=== PATIENT | female | born 1950 | race African-American/Black ===

== ENCOUNTER 2016-11-22 19:45 | Observation (INO) ==
[2016-11-22 20:28] LABS: Bilirubin,Urine Negative (Negative); Blood,Urine Negative (Negative); Clarity,Urine Clear (Clear); Color,Urine Yellow (Yellow); Glucose,Urine (UA) >=1000 mg/dL (Normal); Ketones,Urine Trace mg/dL (Negative); Leukocyte Esterase,Urine Negative (Negative); Nitrite,Urine Negative (Negative); Protein,Urine Negative (Neg-Trace); Specific Gravity,Urine 1.025 (1.010-1.025); Urobilinogen,Urine Normal (Normal)
[2016-11-22] MEDS: 0.9 % Sodium Chloride 1,000 ML IVC ONE ×2 (20:31→21:54)
[2016-11-22 20:39] LABS: Basophils % 0.2 %; Eosinophils # 0.1 K/mcL (0.0-0.6); Eosinophils % 0.7 %; Hematocrit 37.2 % (35.3-44.9); Immature Granulocytes % 0.4 % (0-4); Lymphocytes # 3.2 K/mcL (0.6-4.6); Lymphocytes % 30.4 %; Mean Corpuscular HGB Conc 34.9 g/dL (31.6-35.5); Mean Corpuscular Hemoglobin 27.9 pg (28.0-33.3); Mean Corpuscular Volume 79.8 fL (83.0-100.0); Mean Platelet Volume 11.6 fL (9.4-12.4); Monocytes # 0.5 K/mcL (0.0-1.3); Monocytes % 5.1 %; Neutrophils # 6.6 K/mcL (1.6-8.9); Platelet Count 226 K/mcL (140-400); Red Blood Count 4.66 M/mcL (3.82-4.97); Red Cell Distribution Width 12.4 % (11.5-14.5); Segmented Neutrophils % 63.2 %
[2016-11-22 20:40] LABS: VBG HCO3 24.8 mEq/L (21-27); VBG PH 7.39 pH Units (7.32-7.42)
[2016-11-22 20:53] LABS: Albumin 3.7 g/dL (3.5-5.0); Bilirubin,Total 0.7 mg/dL (0.2-1.2); Calcium 9.8 mg/dL (8.6-10.8); Globulin 3.8 g/dL (2.4-3.5); Phosphorous 2.8 mg/dL (2.3-4.7); Potassium 3.9 mEq/L (3.5-4.5); Total Protein 7.5 g/dL (6.0-8.3)
[2016-11-22 20:55] LABS: Beta-Hydroxybutyric Acid 0.75 mmol/L (0.02-0.27)
[2016-11-22] MEDS ORDERED: Insulin Regular, Human 100 UNIT/ML IV ONE (21:01)
--- NOTE | 2016-11-22 21:06 | Emergency Department Note ---
Disposition Clinical Impression: Acute kidney injury Hyperglycemia due to type 2 diabetes mellitus Qualifiers: Diabetes mellitus nursing home insulin use: without setter automatic spinning lathe use Qualified Code(s ): E11.65 - Type 2 diabetes mellitus with hyperglycemia Disposition: Admitted As Inpatient Condition: Fair Time of Disposition: 23:32 General Adult HPI - General Chief complaint: ED General Medical Stated complaint: elevated bs Time Seen by Provider: 11/22/16 19:56 Source: patient Mode of arrival: ambulatory Limitations: no limitations Nursing Notes Reviewed: Yes Vital Signs Reviewed: Yes - History of Present Illness HPI Narrative: 66-year-old female presented to the ED complaining of high blood sugars. She states that she was newly diagnosed with diabetes approximately one year ago and is on metformin. She says her sugars has been good. She has had an extensive family history diabetes where all family members are on insulin. She states that recently she has been checking her sugars and they are showing high on the reading. So she went to another facility and they recommended she come here because her sugars are too high at this time. She is complaining of blurry vision and feeling woozy. But she is complaining of no other pain anywhere else. She says that she is alert and oriented and feels comfortable driving and doing normal daily activities this time. She is able to see things but says that her vision has been slowly getting a little worse at This time. She has no belly pain or chest pain or shortness of breath. She is on any complaints at this time. Pain Scale: 0 - Related Data Home Medications Medication Instructions Recorded Confirmed Albuterol Sulfate [Proair Hfa] 1 puff IH PRN PRN 06/26/15 04/10/16 Carvedilol 3.125 mg PO BID 06/26/15 04/10/16 amLODIPine [Norvasc] 10 mg PO DAILY 06/26/15 04/10/16 CloNIDine Patch [Catapres-Tts] 0.2 mg TD MO 04/10/16 04/10/16 Fosinopril Sodium 20 mg PO DAILY 04/10/16 04/10/16 Furosemide [Lasix] 40 mg PO DAILY 04/10/16 04/10/16 Metformin HCl [Metformin HCl ER] 1,000 mg PO DAILY 04/10/16 04/10/16 OxyCODONE/APAP 5/325 [Percocet 1 each PO Q8HR PRN 04/10/16 04/10/16 5/325 MG] Rosuvastatin Calcium [Crestor] 10 mg PO DAILY 04/10/16 04/10/16 Previous Rx's Medication Instructions Recorded OxyCODONE Immed Rel [Roxicodone 5 5 mg PO Q6HR PRN #60 tablet 04/11/16 MG] levoFLOXacin [Levaquin] 500 mg PO DAILY #7 tablet 05/14/16 predniSONE [Prednisone] 50 mg PO DAILY 5 Days 05/14/16 Allergies Allergy/AdvReac Type Severity Reaction Status Date / Time azithromycin [From Zithromax] AdvReac See Verified 05/14/16 15:49 Comments Constitutional: Denies: fever, chills, weakness, weight change Eyes: Reports: vision change (Blurry vision). Denies: eye pain, eye discharge ENT ED: Denies: ear pain, throat pain, dental pain, hearing loss, epistaxis, congestion, dysphagia Cardiovascular: Denies: chest pain, palpitations, dyspnea on exertion, edema, syncope Respiratory: Denies: cough, dyspnea, wheezes, hemoptysis, stridor Gastrointestinal: Denies: abdominal pain, nausea, vomiting, diarrhea, constipation, hematemesis, melena, hematochezia Genitourinary: Denies: dysuria, frequency, hematuria, discharge Musculoskeletal: Denies: back pain, neck pain, arthralgia, myalgia Integumentary: Denies: rash, abrasion, lesions Neurological: Reports: weakness. 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 - Social History Smoking Status: Never smoker Smokeless Tobacco Status: No Alcohol use: Reports: occasionally Drug use: Reports: none Physical Exam - General Limitations: no limitations General appearance: alert - Head Head exam: atraumatic, normocephalic, normal inspection - Eye Eye exam: Present: normal appearance, PERRL, EOMI - ENT ENT exam: normal exam, normal oropharynx, mucous membranes moist - Expanded ENT Exam External ear exam: Present: normal external inspection Mouth exam: Present: normal external inspection Teeth exam: Present: normal inspection Throat exam: Present: normal inspection - Neck Neck exam: Present: normal inspection, full ROM, trachea midline - Chest Chest inspection: Present: normal inspection, symmetric chest wall rise - Respiratory Respiratory exam: Present: normal lung sounds bilaterally - Cardiovascular Cardiovascular exam: Present: regular rate, normal rhythm, normal heart sounds - Abdominal Exam Abdominal exam: Present: soft, Non-Tender. Absent: tenderness, distention, guarding, rebound, rigidity - Back Exam Back exam: Present: normal inspection, full ROM. Absent: tenderness - Neurological Exam Neurological exam: Present: alert, oriented X3 - Skin Skin exam: Present: warm, dry, intact, normal color Course Course Narrative: This is a 66-year-old male presents to the ED complaining of high blood sugars. She had a blood glucose of 500 upon arrival. She does have history diabetes she is a type II diabetic and is non-insulin. She states her last A1c was 7.1 in June. She is taking her metformin and other medications as prescribed this time. I notices is progressing diabetes or she may need insulin now. We will do basic labs and checking electrolytes, urine looking for ketones, CBC is C if there is any source of infection could be causing it. We will give her 2 L of normal saline and 10 units of insulin then later check her blood sugars. Her potassium is normal at this time. There is no need for supplemental potassium. - Consultations Consultation #1: Local Dr. Gore who agreed to admit the patient to the hospitalist service for hyperglycemia and acute kidney injury. Vital Signs Temperature 98.9 F 11/22/16 19:49 Pulse Rate 98 11/22/16 19:49 Respiratory Rate 22 11/22/16 19:49 Blood Pressure 126/83 11/22/16 19:49 O2 Sat by Pulse Oximetry 95 11/22/16 19:49 Temperature 98.3 F 11/23/16 00:19 Pulse Rate 69 11/23/16 00:19 Respiratory Rate 16 11/23/16 00:19 Blood Pressure 112/69 11/23/16 00:19 O2 Sat by Pulse Oximetry 96 11/23/16 00:19 Oxygen Delivery Oxygen Delivery Room Air Medical Decision Making - MDM Narrative Medical decision making narrative: 66-year-old female present to the ED with high blood sugars. When she Arrived she had a blood sugar over 500. We gave her 2 L of fluid as well as 10 units of insulin to lower her sugars. She has been on metformin. Labs show that she had acute kidney injury with an elevated creatinine of 1.6 were her normal is 1.0. She has had a history of having acute renal failure. Her second blood sugar after that treatment was 300. Due to the acute kidney injury being dehydrated and the elevated blood sugars were she most likely needs insulin we thought admission to the hospital would be the best course of action. The patient her this. Spoke with Dr. Gore the hospitalist who agreed to admit the patient. Patient is being admitted to the hospitalist service in stable condition with vital signs stable this time. - Medical Records Medical records reviewed: Yes I reviewed the patient's medical records. - Lab Data Lab results reviewed: Yes I reviewed the patient's lab results. Result diagrams: 11/22/16 20:33 11/22/16 20:33 Lab Results 11/22/16 11/22/16 11/22/16 Range/Units 20:18 20:20 20:33 WBC 10.5 (4.3-11.1) K/mcL RBC 4.66 (3.82-4.97) M/mcL Hgb 13.0 (11.5-15.4) g/dL Hct 37.2 (35.3-44.9) % MCV 79.8 L (83.0-100.0) fL MCH 27.9 L (28.0-33.3) pg MCHC 34.9 (31.6-35.5) g/dL RDW 12.4 (11.5-14.5) % Plt Count 226 (140-400) K/mcL MPV 11.6 (9.4-12.4) fL Immature Gran % 0.4 (0-4) % Seg Neutrophils % 63.2 % Lymphocytes % 30.4 % Monocytes % 5.1 % Eosinophils % 0.7 % Basophils % 0.2 % Neutrophils # 6.6 (1.6-8.9) K/mcL Lymphocytes # 3.2 (0.6-4.6) K/mcL Monocytes # 0.5 (0.0-1.3) K/mcL Eosinophils # 0.1 (0.0-0.6) K/mcL Basophils # 0.0 (0.0-0.2) K/mcL VBG pH (7.32-7.42) pH Units VBG pCO2 (41-51) mmHg VBG pO2 (25-40) mmHg VBG HCO3 (21-27) mEq/L Sodium (136-145) mEq/L Potassium (3.5-4.5) mEq/L Chloride (98-109) mEq/L Carbon Dioxide (19-29) mEq/L BUN (7-20) mg/dL Creatinine (0.57-1.11) mg/dL Est GFR ( Amer) (> 60) Est GFR (Non-Af Amer) (> 60) BUN/Creatinine Ratio (6-26) Glucose (70-99) mg/dL POC Glucose 549 H* (58-89) Calculated Osmolality (280-300) Calcium (8.6-10.8) mg/dL Phosphorus (2.3-4.7) mg/dL Magnesium (1.6-2.6) mg/dL Total Bilirubin (0.2-1.2) mg/dL AST (5-34) Units/L ALT (0-55) Units/L Alkaline Phosphatase (38-126) Units/L Serum Total Protein (6.0-8.3) g/dL Albumin (3.5-5.0) g/dL Globulin (2.4-3.5) g/dL Albumin/Globulin Ratio (1.1-2.2) Beta-Hydroxybutyric Acd (0.02-0.27) mmol/L Urine Color Yellow (Yellow) Urine Clarity Clear (Clear) Urine pH 6.0 (5.0-8.0) pH Units Ur Specific [place] 1.025 (1.010-1.025) Urine Protein Negative (Neg-Trace) mg/dL Urine Glucose (UA) >=1000 H (Normal) mg/dL Urine Ketones Trace H (Negative) mg/dL Urine Blood Negative (Negative) Urine Nitrite Negative (Negative) Urine Bilirubin Negative (Negative) Urine Urobilinogen Normal (Normal) mg/dL Ur Leukocyte Esterase Negative (Negative) Ur Culture Indicated? NO (NO) 09/08/17 09/08/17 09/08/17 Range/Units 20:33 20:33 22:48 WBC (4.3-11.1) K/mcL RBC (3.82-4.97) M/mcL Hgb (11.5-15.4) g/dL Hct (35.3-44.9) % MCV (83.0-100.0) fL MCH (28.0-33.3) pg MCHC (31.6-35.5) g/dL RDW (11.5-14.5) % Plt Count (140-400) K/mcL MPV (9.4-12.4) fL Immature Gran % (0-4) % Seg Neutrophils % % Lymphocytes % % Monocytes % % Eosinophils % % Basophils % % Neutrophils # (1.6-8.9) K/mcL Lymphocytes # (0.6-4.6) K/mcL Monocytes # (0.0-1.3) K/mcL Eosinophils # (0.0-0.6) K/mcL Basophils # (0.0-0.2) K/mcL VBG pH 7.39 (7.32-7.42) pH Units VBG pCO2 41 (41-51) mmHg VBG pO2 47 H (25-40) mmHg VBG HCO3 24.8 (21-27) mEq/L Sodium 123 L (136-145) mEq/L Potassium 3.9 (3.5-4.5) mEq/L Chloride 92 L (98-109) mEq/L Carbon Dioxide 21 (19-29) mEq/L BUN 28 H (7-20) mg/dL Creatinine 1.65 H (0.57-1.11) mg/dL Est GFR ( Amer) 38 L (> 60) Est GFR (Non-Af Amer) 31 L (> 60) BUN/Creatinine Ratio 17 (6-26) Glucose 621 H* (70-99) mg/dL POC Glucose 310 H (58-89) Calculated Osmolality 291 (280-300) Calcium 9.8 (8.6-10.8) mg/dL Phosphorus 2.8 (2.3-4.7) mg/dL Magnesium 2.0 (1.6-2.6) mg/dL Total Bilirubin 0.7 (0.2-1.2) mg/dL AST 12 (5-34) Units/L ALT 15 (0-55) Units/L Alkaline Phosphatase 99 (38-126) Units/L Serum Total Protein 7.5 (6.0-8.3) g/dL Albumin 3.7 (3.5-5.0) g/dL Globulin 3.8 H (2.4-3.5) g/dL Albumin/Globulin Ratio 1.0 L (1.1-2.2) Beta-Hydroxybutyric Acd 0.75 H (0.02-0.27) mmol/L Urine Color (Yellow) Urine Clarity (Clear) Urine pH (5.0-8.0) pH Units Ur Specific [place] (1.010-1.025) Urine Protein (Neg-Trace) mg/dL Urine Glucose (UA) (Normal) mg/dL Urine Ketones (Negative) mg/dL Urine Blood (Negative) Urine Nitrite (Negative) Urine Bilirubin (Negative) Urine Urobilinogen (Normal) mg/dL Ur Leukocyte Esterase (Negative) Ur Culture Indicated? (NO) - Radiology Data Radiology results reviewed: Yes I reviewed the patient's radiology results. - EKG Data EKG #1 EKG attestation: Yes I reviewed and interpreted this EKG. EKG results narrative: EKG done reviewed by myself and the attending. Shows normal sinus rhythm at a rate of 74, CA interval 131, QRS 86, QTC 426 with a normal axis. There are no acute ST changes, no acute T-wave changes. No signs of heart strain, heart block, hypertrophy. Nose is the pupillary size. Syndrome. This compared with an old EKG done 05/14/16 which showed sinus tachycardia but no acute changes at this time. Overall impression this EKG is normal sinus rhythm with no acute changes. EKG shows normal: sinus rhythm, axis, intervals, QRS complexes, ST-T waves Rhythm: NSR [place]/QRS: normal When compared to previous EKG there are: no significant changes Interpretation: no acute changes, normal EKG, unchanged when compared to prior tracing (date) S.B.A.R. - S.B.A.R. Transition of Care: Nazanin with Dr. Gore who agreed to admit the patient to the hospitalist service. Physical given as well as the assessment and plan we did here in the emergency room. Situation: Demographics Background: Presenting Complaint, Relevant PMH, Meds, & Allergies Assessment: Vital Signs, Course and respsone to treatment, Exam Concerns, Patient/Family Expectation, Pertinant Lab Results Recommendation: Barrier(s) to disposition, Recommendation based on pending studies, treatments, or consults Liane Report Given to: Dr. Franco Rob Repor Time: 23:34 Attestation Statement - Attestation Attestation: I examined this patient and my medical decision-making was reviewed with the Resident Physician. I agree with the documented findings, disposition and treatment plan as described except to the extent set forth below. Patient ED complaining of a high blood sugar. Patient states she has had polyuria and polydipsia. Weight loss. Her blood sugar has been reading high. On examination she is well appearing pleasant and conversant. Lungs clear. Plan. Labs show a normal anion gap. Blood sugar in the 600s. She did receive an IV dose of insulin which dropped her sugar to around 300. Concern with her acute kidney injury and her lack of follow-up for a couple days. Will admit.
[2016-11-22] MEDS ORDERED: 0.9 % Sodium Chloride 1,000 ML ONE (21:31)
[2016-11-23] MEDS ORDERED: Naloxone 0.4 MG/ML INJ IVP PRN (00:04)
[2016-11-23] MEDS ORDERED: D5% in Water 1,000 ML IVC PRN (00:06)
[2016-11-23] MEDS ORDERED: *HR* Dextrose 50 % in Water (Syg) 50 ML SYRINGE IVP PRN (00:06)
[2016-11-23] MEDS ORDERED: Dextrose Gel 15 GM PO PRN ×2 (00:06)
[2016-11-23] MEDS ORDERED: 0.9 % Sodium Chloride 1,000 ML IVC ONE (00:07)
--- NOTE | 2016-11-23 00:13 | Internal Med History&Physical ---
Date of Encounter: 11/23/16 Time of Encounter: 00:10 Assessment and Plan (1) Acute kidney injury Current visit: Yes Status: Acute suspect related to lasix use and diuretic effect of glycouria. IVF bolus, MIV , check Cr in a.m (2) Hyperglycemia due to type 2 diabetes mellitus Current visit: Yes Status: Acute check A1c, will need to convert to insulin given how high the reading was. Start low with NPH BID, ISS ac/hs to estimate needs over next day or so. Consult para educator Qualifiers: Diabetes mellitus middle or intermediate school principal insulin use: without middle or intermediate school principal use Qualified Code(s): E11.65 - Type 2 diabetes mellitus with hyperglycemia (3) HLD (hyperlipidemia) Current visit: Yes Status: Acute stable Qualifiers: Hyperlipidemia type: pure hypercholesterolemia Qualified Code(s): E78.00 - Pure hypercholesterolemia, unspecified; E78.0 - Pure hypercholesterolemia (4) Asthma Current visit: Yes Status: Acute stable Qualifiers: Asthma complication type: uncomplicated Qualified Code(s): J45.909 - Unspecified asthma, uncomplicated Internal Medicine - H&P: HPI Chief complaint: high Sugar History of present illness: Ms. Goff is a 66 year old female who presents to the ED for hyperglycemia - found to be in KEESHA and uncontrolled blood sugar. She has been on oral metformin managed by PCP but since friday while checking her CBG daily, she noted that the reading was above the threshold of her device. She says she has been putting off insulin for a while now. This morning , her CBG reading was 490. She got concerned and presented to the ED where she was found to be in hyperglycemia w/o evidence of DKA or HONK but had developed worsening KEESHA in setting of glycouria and lasix use Past Med Surg Social Fam HX - Past Medical History Medical history: asthma, diabetes, hyperlipidemia, hypertension Psychiatric history: no psych history - Social History Smoking Status: Never smoker Smokeless Tobacco Status: No Alcohol use: occasionally Drug use: none - Family History Mother Living Status: Hx Family Cardiac Disorders: No Internal Medicine - H&P: Meds Albuterol Sulfate [Proair Hfa] 1 puff IH PRN PRN 06/26/15 [History] Carvedilol 3.125 mg PO BID 06/26/15 [History] amLODIPine [Norvasc] 10 mg PO DAILY 06/26/15 [History] CloNIDine Patch [Catapres-Tts] 0.2 mg TD MO 04/10/16 [History] Fosinopril Sodium 20 mg PO DAILY 04/10/16 [History] Furosemide [Lasix] 40 mg PO DAILY 04/10/16 [History] Metformin HCl [Metformin HCl ER] 1,000 mg PO DAILY 04/10/16 [History] OxyCODONE/APAP 5/325 [Percocet 5/325 MG] 1 each PO Q8HR PRN 04/10/16 [History] Rosuvastatin Calcium [Crestor] 10 mg PO DAILY 04/10/16 [History] OxyCODONE Immed Rel [Roxicodone 5 MG] 5 mg PO Q6HR PRN #60 tablet 04/11/16 [Rx] levoFLOXacin [Levaquin] 500 mg PO DAILY #7 tablet 05/14/16 [Rx] predniSONE [Prednisone] 50 mg PO DAILY 5 Days 05/14/16 [Rx] 3 Allergy/AdvReac Type Severity Reaction Status Date / Time azithromycin [From Zithromax] AdvReac See Verified 05/14/16 15:49 Comments All Systems PM: A 10-system review of systems was performed and is negative for pertinent findings except as documented above in the HPI. Review of systems: ROS 14 point review of systems reviewed as best as possible given presentation. Pertinent positive or negative as per HPI or otherwise reviewed as negative - Constitutional Vitals: Temp Pulse Resp BP Pulse Ox 98.9 F 98 18 0/0 95 11/22/16 19:49 11/22/16 19:49 11/22/16 23:53 11/22/16 23:53 11/22/16 19:49 Exam: General - AAO x 3 Psych - Appropriate affect/speech. No agitation Eyes - DMITRY. Eye lids intact. No scleral icterus Heart - Sinus. RRR. S1 and S2 present. No added HS/murmurs appreciated. No elevated JVD appreciated. No calf swellings/erythema Lung - Adequate air entry b/l, No crackles/wheezes appreciated GI - Soft, non-tender. No hepatosplenomegaly/ascites. BS+ - No CVA/suprapubic tenderness or palpable bladder distension Skin - Intact. No rash/petechiae/ecchymosis. Warm extremities MSK - Joints with normal ROM. No joint swellings Internal Med - H&P Results - Labs CBC & Chem 7: 11/22/16 20:33 11/22/16 20:33
[2016-11-23] MEDS: Insulin NPH/REG 70/30 100 UNIT/ML (x5UNIT) SQ SCH ×2 (01:12→09:28)
[2016-11-23] MEDS: 0.9 % Sodium Chloride 1,000 ML IVC SCH ×2 (01:12→09:29)
[2016-11-23] MEDS ORDERED: *HR* Enoxaparin 40 MG/0.4 ML SYRINGE SQ SCH (06:00)
[2016-11-23 07:47] LABS: BUN/Creatinine Ratio 17 (6-26); Calcium 8.5 mg/dL (8.6-10.8); Carbon Dioxide 20 mEq/L (19-29); Glucose 222 mg/dL (70-99); Osmolality,Calculated 286 (280-300); Potassium 3.5 mEq/L (3.5-4.5); eGFR For African Americans > 60 (> 60); eGFR For Non-African Americans > 60 (> 60)
[2016-11-23 07:55] LABS: Blood Urea Nitrogen 15 mg/dL (7-20); Chloride 109 mEq/L (98-109); Sodium 134 mEq/L (136-145)
[2016-11-23] MEDS ORDERED: amLODIPine 5 MG TABLET PO SCH (09:00)
[2016-11-23] MEDS ORDERED: Lisinopril 20 MG TABLET PO SCH (09:00)
[2016-11-23] MEDS: Insulin LISPRO 300 UNITS/3 ML VIAL SQ SCH ×2 (09:28→11:18)
[2016-11-23 11:15] VITALS: BP 93/49
--- NOTE | 2016-11-23 11:50 | Discharge Summary ---
Date of Encounter: 11/23/16 Time of Encounter: 08:35 - Discharge Diagnosis (1) Acute kidney injury Priority: Primary Status: Acute (2) Hyperglycemia due to type 2 diabetes mellitus Priority: Secondary Status: Acute Qualifiers: Diabetes mellitus watermelon inspector insulin use: without fpc use Qualified Code(s): E11.65 - Type 2 diabetes mellitus with hyperglycemia (3) HLD (hyperlipidemia) Priority: Secondary Status: Chronic Qualifiers: Hyperlipidemia type: pure hypercholesterolemia Qualified Code(s): E78.00 - Pure hypercholesterolemia, unspecified; E78.0 - Pure hypercholesterolemia (4) Asthma Priority: Secondary Status: Chronic Qualifiers: Asthma severity: unspecified severity Asthma complication type: uncomplicated Qualified Code(s): J45.909 - Unspecified asthma, uncomplicated - Discharge Medications Prescriptions: Insulin DETEMIR [Levemir Flextouch] 15 unit SQ BID #1 insuln.pen Insulin LISPRO [Humalog Kwikpen U-100] 5 unit SQ TIDAC #10 mls Home Medications: Furosemide [Lasix] 40 mg PO DAILY 04/10/16 [History] Rosuvastatin Calcium [Crestor] 10 mg PO DAILY 04/10/16 [History] Budesonide/Formoterol 160/4.5 [Symbicort 160/4.5] 2 puff IH BID 11/23/16 [ History] Insulin DETEMIR [Levemir Flextouch] 15 unit SQ BID #1 insuln.pen 11/23/16 [Rx] Insulin LISPRO [Humalog Kwikpen U-100] 5 unit SQ TIDAC #10 mls 11/23/16 [Rx] amLODIPine [Norvasc] 5 mg PO DAILY #0 11/23/16 [Rx] Allergies/Adverse Reactions: 3 Allergy/AdvReac Type Severity Reaction Status Date / Time azithromycin [From Zithromax] AdvReac See Verified 05/14/16 15:49 Comments Date of admission: 11/22/16 23:21 Primary care physician: Damir Berry M.D. Discharging clinician: Mitzy Gottlieb Anticipated date of discharge: 11/23/16 - Patient Status Disposition: Home, Self-Care Condition: Good Functional capacity at discharge: independent ambulation Overall status at discharge: patient is back to baseline - Discharge Instructions Instructions: Diabetes Mellitus Type 2 in Adults (DC) Follow Up With: Jamal Lewis,Damir Chamorro [Primary Care Provider] - (in 1-2 weeks) - Diet and Activity Activity: increase activity as tolerated Diet: diabetic diet, low fat, low cholesterol, low salt diet Hospital course: Ms. Goff is a 66 year old female patient with a history of diabetes mellitus, asthma, hyperlipidemia who was seen in the ED due to repeatedly elevated blood sugars since 5 days. She was found to have a blood sugar of 621 on arrival to the ER here. Her creatinine was also elevated at 1.65. She was hospitalized for hyperglycemic state and given IV fluids and insulin with improvement in her blood sugars. This morning her blood sugars are much better control and her renal function has normalized. Her A1c level is 12%. As such she will be started on an insulin regimen to control her blood sugars better. I have explained to her the rationale for starting insulin and she expressed understanding and is willing to take insulin as prescribed. She will follow up with her primary care provider for further management of her diabetes. She can resume taking metformin and her diuretics after 24 hours. She will be discharged home today. Patient's blood pressure has been low today after she received her medications this morning. Will decrease her dosage of amlodipine. - Time Spent with Patient Total time spent providing and/or coordinating discharge services: Greater than 30 minutes (35 min) - Constitutional Vitals: Temp Pulse Resp BP Pulse Ox 98.3 F 67 14 93/49 96 11/23/16 11:13 11/23/16 11:13 11/23/16 11:13 11/23/16 11:13 11/23/16 11:13 General appearance: Present: cooperative, A&O X 3, obese, answers questions appropriately - Respiratory Respiratory exam: Present: CTAB. Absent: accessory muscle use, rales, rhonchi, wheezes - Cardiovascular Cardiovascular exam: Present: RRR, +S1, +S2. Absent: diastolic murmur, gallop, rubs, systolic murmur - GI/Abdominal GI/Abdominal exam: Present: normal bowel sounds, soft, no peritoneal signs. Absent: distended, tenderness
[2016-11-23] MEDS ORDERED: Insulin LISPRO 300 UNITS/3 ML VIAL SQ SCH (21:00)
[2016-11-25] MEDS ORDERED: CloNIDine Patch 0.2 MG PATCH (WEEKLY) TD SCH (09:00)
--- NOTE | 2016-11-25 10:35 | Electrocardiograph Report ---
[place] [id number] Test Date: 2016-11-22 Pat Name: Nanette Goff Department: 102 Room: 3B37 Gender: F Video Effects Editor: : 1950 Requested By: Saeid Fontanez Order Number: [id number] Reading MD: Hussain Posada MD Measurements Intervals [place] Rate: 74 P: 56 [place]: 131 QRS: 32 QRSD: 86 T: 19 QT: 399 QTc: 426 Interpretive Statements SINUS RHYTHM Electronically Signed On 11-25-2016 10:33:40 EDT by Hussain Posada MD
== END 2016-11-23 15:21 | disposition home or self-care (01) ==
LOC: 3BNU 19:45 → EMEROO 19:45 → SUATTDRO 23:21 → 3BNU 11-23 00:15
PROVIDERS: ADMIT Internal Medicine Hematology & Oncology; ATTEND Internal Medicine

== ENCOUNTER 2019-09-27 07:57 | Observation (INO) ==
[~2019-09-27 07:57] MED LIST: Bacitracin 50,000 UNIT, Polymyxin B Sulfate 500,000 UNIT, Sodium Chloride IRRigation 1,... IR ONE
[2019-09-27] MEDS ORDERED: *HR* FentaNYL (PF) 100 MCG/2 ML VIAL ONE (08:23)
[2019-09-27] MEDS ORDERED: *HR* Propofol 200 MG/20 ML VIAL IVP ONE (08:23)
[2019-09-27] MEDS ORDERED: Lidocaine -MPF 2% 2 ML VIAL ONE (08:23)
[2019-09-27] MEDS ORDERED: *HR* Midazolam HCl 2 MG/2 ML VIAL ONE (08:23)
[2019-09-27] MEDS ORDERED: *HR* Rocuronium Bromide 50 MG/5 ML VIAL ONE (08:23)
[2019-09-27] MEDS ORDERED: Ondansetron 4 MG/2 ML VIAL ONE (08:23)
[2019-09-27] MEDS ORDERED: *HR* HYDROmorphone PF 0.5 MG/0.5 ML SYRINGE IVP PRN (08:29)
[2019-09-27] MEDS ORDERED: Dexamethasone 4 MG/ML VIAL ONE (08:29)
[2019-09-27] MEDS ORDERED: Ondansetron 4 MG/2 ML VIAL IVP ONE (08:29)
[2019-09-27] MEDS ORDERED: *HR* OxyCODONE Immed Rel 5 MG TABLET PO PRN (08:29)
[2019-09-27] MEDS ORDERED: Ringers Solution, Lactated 1,000 ML IVC SCH (08:30)
[2019-09-27] MEDS ORDERED: CeFAZolin Syr 2,000MG/20 ML 2,000 MG/20 ML SYRINGE IVPB ONE (08:48)
[2019-09-27] MEDS ORDERED: *HR* HYDROcodone/Acet 5/325 mg TABLET PO PRN (12:21)
[2019-09-27] MEDS ORDERED: Naloxone 0.4 MG/ML INJ IVP PRN (12:21)
[2019-09-27] MEDS ORDERED: Budesonide/Formoterol 160/4.5 1 PUFF INH IH PRN (12:21)
[2019-09-27] MEDS ORDERED: Acetaminophen 325 MG TABLET PO PRN (12:21)
[2019-09-27] MEDS ORDERED: (Ubidecarenone [Coenzyme Q10] 100 MG) PO PRN (12:21)
[2019-09-27] MEDS ORDERED: Ondansetron 4 MG/2 ML VIAL IVP PRN (12:21)
[2019-09-27] MEDS: *HR* OxyCODONE Immed Rel 5 MG TABLET PO PRN ×2 (12:43→18:39)
[2019-09-27] MEDS ORDERED: Dextrose Gel 15 GM/37.5 ML TUBE PO PRN ×2 (12:44)
[2019-09-27] MEDS ORDERED: D5% in Water 1,000 ML IVC PRN (12:44)
[2019-09-27] MEDS ORDERED: *HR* Dextrose 50 % in Water (Vial) 50 ML VIAL IVP PRN (12:44)
[2019-09-27] MEDS: Ringers Solution, Lactated 1,000 ML IVC SCH ×2 (12:45→23:04)
[2019-09-27] MEDS ORDERED: CloNIDine Patch 0.2 MG PATCH (WEEKLY) TD SCH (16:00)
[2019-09-27] MEDS: Insulin LISPRO 300 UNITS/3 ML VIAL SQ SCH (17:00)
[2019-09-27] MEDS: carvediloL 6.25 MG TABLET PO SCH (17:07)
[2019-09-27] MEDS: CeFAZolin 2 GM/120 ML BAG IVPB SCH ×2 (17:09→23:05)
[2019-09-27] MEDS ORDERED: Insulin DETEMIR 100 UNIT/ML X5UNITS SQ SCH (21:00)
[2019-09-27] MEDS ORDERED: NON-FORMULARY MEDICATION 1 EACH EACH (Insulin Glargine,Hum.Rec.Anlog [Basaglar Kwikpen U-1 SQ SCH (21:00)
[2019-09-27] MEDS ORDERED: Chloraseptic Spray 177 ML BOTTLE MM PRN (22:29)
[2019-09-28] MEDS: *HR* OxyCODONE Immed Rel 5 MG TABLET PO PRN ×3 (00:55→12:38)
[2019-09-28] MEDS: Insulin LISPRO 300 UNITS/3 ML VIAL SQ SCH ×3 (08:25→16:50)
[2019-09-28] MEDS: lisinopriL 20 MG TABLET PO SCH (08:30)
[2019-09-28] MEDS: amLODIPine 5 MG TABLET PO SCH (08:30)
[2019-09-28] MEDS: Furosemide 40 MG TABLET PO SCH (08:30)
[2019-09-28] MEDS: carvediloL 6.25 MG TABLET PO SCH ×2 (08:31→16:51)
[2019-09-28] MEDS: Cholecalciferol (D-3) 1,000 UNIT (25MCG) TABLET PO SCH (08:31)
[2019-09-28] MEDS: Ringers Solution, Lactated 1,000 ML IVC SCH ×2 (10:11→18:00)
[2019-09-28] MEDS ORDERED: Insulin DETEMIR 100 UNIT/ML X5UNITS SQ SCH (21:30)
[2019-09-29] MEDS: Insulin LISPRO 300 UNITS/3 ML VIAL SQ SCH ×2 (08:15→13:07)
[2019-09-29] MEDS: amLODIPine 5 MG TABLET PO SCH (08:20)
[2019-09-29] MEDS: carvediloL 6.25 MG TABLET PO SCH (08:20)
[2019-09-29] MEDS: Furosemide 40 MG TABLET PO SCH (08:20)
[2019-09-29] MEDS: Cholecalciferol (D-3) 1,000 UNIT (25MCG) TABLET PO SCH (08:20)
[2019-09-29] MEDS: lisinopriL 20 MG TABLET PO SCH (08:20)
[2019-09-29 11:09] VITALS: BP 103/67
[2019-09-29] MEDS: *HR* OxyCODONE Immed Rel 5 MG TABLET PO PRN (13:08)
[2019-09-29] MEDS ORDERED: Insulin DETEMIR 100 UNIT/ML X5UNITS SQ SCH (21:00)
== END 2019-09-29 13:53 | disposition home or self-care (01) ==
LOC: SAMDAY 07:57 → 3NENU 07:57
PROVIDERS: ADMIT Orthopaedic Surgery Orthopaedic Surgery of the Spine; ATTEND Orthopaedic Surgery Orthopaedic Surgery of the Spine